=== PATIENT | female | born 1945 | race Caucasian/White ===

== ENCOUNTER 2021-05-23 09:18 | Inpatient (IN) | payer MEDICARE, OTHER ==
[~2021-05-23] VITALS: Ht 162.6 cm; Wt 59.7 kg
--- NOTE | 2021-05-23 09:57 | PHYS DOC ---
Past Medical History Past Medical History: Anemia, Dementia, Diabetes-Type II, GERD, High Chol esterol, Hypertension, Renal Disease, TIA, UTI Additional Past Medical Histor: PE, Additional Past Surgical Histo: Humerus repair, Alcohol Use: None Drug Use: None General Adult EDM: Chief Complaint: FATIGUE HPI: HPI: Patient is a 75 year old female who presents via EMS from retirement with reported complaint of altered mental status and UTI. Per EMS, patient has known UTI. The facility was waiting on a culture result to initiate antibiotic therapy. Patient was more confused today with elevated white count and hypocalcemia, so presents to emergency department under advisement of PCP. EMS reports that the retirement had her on 3 L of oxygen, however they were unable to get an oxygen read en route. Review of Systems: Review of Systems: Unable to obtain secondary to patient's mental status. Heart Score: C/O Chest Pain: N/A Physical Exam: PE: Constitutional: Patient is thin, resting comfortably, no acute distress. HENT: Normocephalic, atraumatic, bilateral external ears normal, oropharynx moist, no oral exudates, nose normal. Eyes: PERRLA, EOMI, conjunctiva normal, no discharge. Neck: Normal range of motion, no step-offs, no tenderness, supple. Cardiovascular: Elevated heart rate with regular rhythm, no murmur. Lungs & Thorax: Bilateral breath sounds clear to auscultation. Abdomen: Bowel sounds normal, soft, no tenderness, no masses, no pulsatile m asses. Skin: Patient is scratching at her right shoulder, where multiple healing excoriations are present. Warm, dry, no erythema, no rash. Back: No tenderness, no CVA tenderness. Extremities: No tenderness, no cyanosis, no clubbing, ROM intact, bilateral lower extremity edema present. Neurologic: Alert and oriented to person and situation only, no focal deficits noted. Current Patient Data: Labs: Laboratory Tests Test 05/23/21 10:03 05/23/21 11:39 White Blood Count 14.7 x10^3/uL (4.0-11.0) Red Blood Count 3.01 x10^6/uL (3.50-5.40) Hemoglobin 10.2 g/dL (12.0-15.5) Hematocrit 30.3 % (36.0-47.0) Mean Corpuscular Volume 101 fL (79-100) Mean Corpuscular Hemoglobin 34 pg (25-35) Mean Corpuscular Hemoglobin Concent 34 g/dL (31-37) Red Cell Distribution Width 15.6 % (11.5-14.5) Platelet Count 305 x10^3/uL (140-400) Neutrophils (%) (Auto) 94 % (31-73) Lymphocytes (%) (Auto) 2 % (24-48) Monocytes (%) (Auto) 4 % (0-9) Eosinophils (%) (Auto) 0 % (0-3) Basophils (%) (Auto) 0 % (0-3) Neutrophils # (Auto) 13.8 x10^3/uL (1.8-7.7) Lymphocytes # (Auto) 0.2 x10^3/uL (1.0-4.8) Monocytes # (Auto) 0.6 x10^3/uL (0.0-1.1) Eosinophils # (Auto) 0.1 x10^3/uL (0.0-0.7) Basophils # (Auto) 0.0 x10^3/uL (0.0-0.2) Segmented Neutrophils % 93 % (35-66) Band Neutrophils % 1 % (0-9) Monocytes % 6 % (0-10) Platelet Estimate Adequate (ADEQUATE) Sodium Level 136 mmol/L (136-145) Potassium Level 3.9 mmol/L (3.5-5.1) Chloride Level 102 mmol/L (98-107) Carbon Dioxide Level 27 mmol/L (21-32) Anion Gap 7 (6-14) Blood Urea Nitrogen 20 mg/dL (7-20) Creatinine 1.0 mg/dL (0.6-1.0) Estimated GFR (Cockcroft-Gault) 54.3 BUN/Creatinine Ratio 20 (6-20) Glucose Level 110 mg/dL (70-99) Lactic Acid Level 1.0 mmol/L (0.4-2.0) Calcium Level 7.8 mg/dL (8.5-10.1) Magnesium Level 1.3 mg/dL (1.8-2.4) Total Bilirubin 1.4 mg/dL (0.2-1.0) Aspartate Amino Transf (AST/SGOT) 46 U/L (15-37) Alanine Aminotransferase (ALT/SGPT) 19 U/L (14-59) Alkaline Phosphatase 159 U/L (46-116) Troponin I High Sensitivity 50 ng/L (4-50) Total Protein 5.4 g/dL (6.4-8.2) Albumin 1.6 g/dL (3.4-5.0) Albumin/Globulin Ratio 0.4 (1.0-1.7) Lipase 17 U/L (73-393) Prothrombin Time 27.6 SEC (11.7-14.0) Prothromb Time International Ratio 2.6 (0.8-1.1) Activated Partial Thromboplast Time 47 SEC (24-38) Vital Signs: Vital Signs Date Time Temp Pulse Resp B/P (MAP) Pulse Ox O2 Delivery O2 Flow Rate FiO2 05/23/21 09:20 100.5 111 12 131/59 (83) 99 Room Air 100.5 EKG: EKG: EKG Interpreted by Dr. Guevara at 0941: Tachycardic sinus dysrhythmia with no ectopic beats. Low voltage EKG. No concerning ST-T wave changes. Radiology/Procedures: Radiology/Procedures: PROCEDURE: PORTABLE CHEST 1V Single view chest dated 05/23/2021 10:17 AM: COMPARISON: None Clinical Indication: Altered mental status. Findings: Single upright portable exam of the chest was performed. Heart and mediastinal contours are within normal limits. There is some increased density at the right base projected over the fifth anterior right rib of uncertain etiology. Lungs are otherwise clear. No pleural effusion. No pneumothorax. Evidence of prior total shoulder arthroplasty in the right. IMPRESSION: 1. There is some increased density projected over the anterior fifth right rib which is of uncertain etiology. Although this could be related to the rib itself, underlying pulmonary mass or focal infiltrate cannot be excluded. PA and lateral exam could better evaluate. Alternatively, chest CT could better evaluate. Electronically signed by: Fabián Norman MD (05/23/2021 10:19 AM) [id number] PROCEDURE: CT ANGIOGRAPHY CHEST CTA chest with contrast dated 05/23/2021. COMPARISON: Chest x-ray dated same day. TECHNIQUE: Contiguous axial imaging the chest performed following the intravenous administration of 75 cc Isovue-370. Study was performed as dedicated PE protocol with thin cut coronal MIPS 3-D reconstruction. One or more of the following individualized dose reduction techniques were utilized for this examination: 1. Automated exposure control 2. Adjustment of the mA and/or kV according to patient size 3. Use of iterative reconstruction technique. FINDINGS: Contrast bolus is adequate. There is a small linear filling defect within the distal right main pulmonary artery extending into the lateral segmental branch of the right middle lobe pulmonary artery. There is a small wedge-shaped defect at the peripheral aspect of the right middle lobe along the major fissure that appears to contain some gas density. There is some subtle linear filling defect within the main left lower lobe are pulmonary artery extending partially into the segmental branches. No additional filling defects are apparent Heart size is mildly enlarged. There is a small pericardial effusion. Coronary artery calcifications. There are borderline enlarged subcarinal and right paratracheal lymph nodes. No axillary or hilar adenopathy. Thyroid gland unremarkable. There are small bilateral pleural effusions. Mild to moderate emphysema. Mild diffuse bronchial wall thickening. Central airways are patent. No additional infiltrates. Images of the upper abdomen show diffuse low-density liver suggesting fatty infiltration. Gallbladder surgically absent. No acute bony abnormality. Multilevel spondylosis. Mild wedge compression deformity of T12, likely remote. IMPRESSION: 1. Small pulmonary embolus within the distal main right pulmonary artery extending into the right middle lobe lateral segmental branch. There is a wedge- shaped area of consolidation in the lateral aspect of the right middle lobe that is nonspecific but most likely related to a small pulmonary infarct. Early pneumonia not excluded. Follow-up imaging may be warranted to ensure resolution. 2. Additional small partially occlusive filling defect within the main left lower lobe pulmonary artery. 3. Small bilateral pleural effusions with small pericardial effusion. 4. Emphysema. 5. Coronary artery calcifications. 6. Borderline enlarged mediastinal lymph nodes, nonspecific. 7. Hepatic steatosis. Results discussed with ER physician at approximately 11:30 AM on the day of study. Electronically signed by: Fabián Norman MD (05/23/2021 11:38 AM) [id number] Course & Med Decision Making: Course & Med Decision Making Pertinent Labs and Imaging studies reviewed. (See chart for details) Patient is altered with known UTI, and now has elevated heart rate and reported leukocytosis. Patient meets sepsis criteria. Right sided infiltrate seen on CXR. CTA chest ordered for further evaluation. Bilateral PE noted on CTA chest. Patient treated with 1 mg/kg low molecular weight heparin subq. Patient admitted to Dr. Hernandez's care for septic UTI and bilateral PE/pleural effusions. Madhuon Disclaimer: Aidee Disclaimer: This electronic medical record was generated, in whole or in part, using a voice recognition dictation system. Departure Departure Impression: Primary Impression: Sepsis secondary to UTI Additional Impressions: Bilateral pulmonary embolism Bilateral pleural effusion Disposition: ADMITTED INPATIENT Admitting Physician: Madi. Nguyen Condition: GUARDED Referrals: CHAKA DAWSON (PCP) Scripts Tramadol Hcl (TRAMADOL HCL) 50 Mg Tablet 50 MG PO Q6HRS PRN for PAIN for 30 Days, #120 TAB Prov: AYAKA HERNANDEZ MD 05/26/21 Fluconazole (FLUCONAZOLE) 100 Mg Tablet 1 TAB PO DAILY for yeast UTI for 10 Days, #10 TAB Prov: AYAKA HERNANDEZ MD 05/26/21 Cefdinir (CEFDINIR) 300 Mg Capsule 1 CAP PO BID for uti for 7 Days, #14 CAP Prov: AYAKA HERNANDEZ MD 05/26/21 GALINA WILLIAM May 23, 2021 09:57
[2021-05-23 10:12] LABS: BASO % 0 % (0-3); EOS # 0.1 x10^3/uL (0.0-0.7); EOS % 0 % (0-3); HEMATOCRIT 30.3 % (36.0-47.0); HEMOGLOBIN 10.2 g/dL (12.0-15.5); LYMPH # 0.2 x10^3/uL (1.0-4.8); LYMPH % 2 % (24-48); MEAN CORPUSCULAR HEMOGLOBIN 34 pg (25-35); MEAN CORPUSCULAR HGB CONC 34 g/dL (31-37); MEAN CORPUSCULAR VOLUME 101 fL (79-100); MONO # 0.6 x10^3/uL (0.0-1.1); MONO % 4 % (0-9); NEUT # 13.8 x10^3/uL (1.8-7.7); NEUT % 94 % (31-73); PLATELET COUNT 305 x10^3/uL (140-400); RED BLOOD COUNT 3.01 x10^6/uL (3.50-5.40); RED CELL DISTRIBUTION WIDTH 15.6 % (11.5-14.5); WHITE BLOOD COUNT 14.7 x10^3/uL (4.0-11.0)
--- NOTE | 2021-05-23 10:22 | RAD ---
Single view chest dated 05/23/2021 10:17 AM: COMPARISON: None Clinical Indication: Altered mental status. Findings: Single upright portable exam of the chest was performed. Heart and mediastinal contours are within no rmal limits. There is some increased density at the right base projected over the fifth anterior righ t rib of uncertain etiology. Lungs are otherwise clear. No pleural effusion. No pneumothorax. Evidenc e of prior total shoulder arthroplasty in the right. IMPRESSION: 1. There is some increased density projected over the anterior fifth right rib which is of uncertain etiology. Although this could be related to the rib itself, underlying pulmonary mass or focal infilt rate cannot be excluded. PA and lateral exam could better evaluate. Alternatively, chest CT could bet ter evaluate. Electronically signed by: Fabián Norman MD (05/23/2021 10:19 AM) [id number]
[2021-05-23 10:27] LABS: CALCIUM 7.8 mg/dL (8.5-10.1); GFR 54.3; POTASSIUM 3.9 mmol/L (3.5-5.1)
[2021-05-23] MEDS ORDERED: IV NORMAL SALINE 1000ML BAG 1,000 ML IV ONE (10:30)
[2021-05-23] MEDS ORDERED: ACETAMINOPHEN 325 MG TABLET. PO ONE (10:30)
[2021-05-23] MEDS ORDERED: cefTRIAXone IV Push 1 GM VIAL. IVP ONE (10:30)
[2021-05-23 10:33] LABS: ALBUMIN 1.6 g/dL (3.4-5.0); ALBUMIN/GLOBULIN RATIO 0.4 (1.0-1.7); MAGNESIUM 1.3 mg/dL (1.8-2.4); TOTAL BILIRUBIN 1.4 mg/dL (0.2-1.0); TOTAL PROTEIN 5.4 g/dL (6.4-8.2)
[2021-05-23] MEDS ORDERED: IOHEXOL 350 MG/ML 100 ML VIAL. IV ONE (11:00)
[2021-05-23] MEDS ORDERED: CONTRAST GIVEN. MC PRN (11:00)
--- NOTE | 2021-05-23 11:40 | RAD ---
CTA chest with contrast dated 05/23/2021. COMPARISON: Chest x-ray dated same day. TECHNIQUE: Contiguous axial imaging the chest performed following the intravenous administration of 75 cc Isovue -370. Study was performed as dedicated PE protocol with thin cut coronal MIPS 3-D reconstruction. One or more of the following individualized dose reduction techniques were utilized for this examinat ion: 1. Automated exposure control 2. Adjustment of the mA and/or kV according to patient size 3. Use of iterative reconstruction technique. FINDINGS: Contrast bolus is adequate. There is a small linear filling defect within the distal right main pulmo nary artery extending into the lateral segmental branch of the right middle lobe pulmonary artery. Th ere is a small wedge-shaped defect at the peripheral aspect of the right middle lobe along the major fissure that appears to contain some gas density. There is some subtle linear filling defect within t he main left lower lobe are pulmonary artery extending partially into the segmental branches. No anna tional filling defects are apparent Heart size is mildly enlarged. There is a small pericardial effusion. Coronary artery calcifications. There are borderline enlarged subcarinal and right paratracheal lymph nodes. No axillary or hilar ad enopathy. Thyroid gland unremarkable. There are small bilateral pleural effusions. Mild to moderate emphysema. Mild diffuse bronchial wall thickening. Central airways are patent. No additional infiltrates. Images of the upper abdomen show diffuse low-density liver suggesting fatty infiltration. Gallbladder surgically absent. No acute bony abnormality. Multilevel spondylosis. Mild wedge compression deformi ty of T12, likely remote. IMPRESSION: 1. Small pulmonary embolus within the distal main right pulmonary artery extending into the right mid dle lobe lateral segmental branch. There is a wedge-shaped area of consolidation in the lateral aspec t of the right middle lobe that is nonspecific but most likely related to a small pulmonary infarct. Early pneumonia not excluded. Follow-up imaging may be warranted to ensure resolution. 2. Additional small partially occlusive filling defect within the main left lower lobe pulmonary l[place] ry. 3. Small bilateral pleural effusions with small pericardial effusion. 4. Emphysema. 5. Coronary artery calcifications. 6. Borderline enlarged mediastinal lymph nodes, nonspecific. 7. Hepatic steatosis. Results discussed with ER physician at approximately 11:30 AM on the day of study. Electronically signed by: Fabián Norman MD (05/23/2021 11:38 AM) [id number]
[2021-05-23] MEDS ORDERED: MAGNESIUM SULFATE 2GM 50 ML IV ONE (12:00)
[2021-05-23 12:09] LABS: PROTHROMBIN TIME PATIENT 27.6 SEC (11.7-14.0)
[2021-05-23] MEDS ORDERED: ACETAMINOPHEN 325 MG TABLET. PO PRN (12:15)
[2021-05-23 13:40] LABS: % BANDS 1 % (0-9); % MONOS 6 % (0-10); % SEGS 93 % (35-66)
[2021-05-23 13:41] LABS: PLT ESTIMATE ADEQUATE (ADEQUATE)
[2021-05-23 14:26] LABS: BILIRUBIN,URINE MODERATE (NEG); CLARITY,URINE TURBID; COLOR,URINE RED; NITRITE,URINE POSITIVE (NEG); PH,URINE 5.5 (<5.0-8.0); PROTEIN,URINE 100 mg/dL (NEG-TRACE)
[2021-05-23 14:37] LABS: BACTERIA,URINE MANY /HPF (0-FEW); WBC,URINE TNTC /HPF (0-4); YEAST,URINE PRESENT /HPF
--- NOTE | 2021-05-23 14:59 | EKG ---
[facility] [address] [place] [address] Test Date: 2021-05-23 Test Time: 09:35:22 Pat Name: NOEMY BELTRÁN Department: Room: ED HOLD 18 Gender: F [employer] Developer: : 1945 Requested By: GALINA WILLIAM Order Number: [id number] Reading MD: Mynor Garay Measurements Intervals Randolph Rate: 109 P: 44 OR: 130 QRS: 59 QRSD: 70 T: 169 QT: 294 QTc: 397 Interpretive Statements SINUS TACHYCARDIA ATRIAL PREMATURE COMPLEX(ES) LOW LIMB LEAD VOLTAGE T ABNORMALITY IN INFERIOR LEADS ABNORMAL ECG RI6.02 No previous ECG available for comparison Electronically Signed On 05-23-2021 20:54:37 CDT by Mynor Garay
[2021-05-23 18:49] VITALS: BP 156/95
[2021-05-23] MEDS ORDERED: APIX5TAB PO (19:51)
[2021-05-23] MEDS ORDERED: POTA10TA12 PO (19:51)
[2021-05-23] MEDS ORDERED: ONDA4TAB12 PO (19:51)
[2021-05-23] MEDS ORDERED: PANT40TA77 PO (19:51)
[2021-05-23] MEDS ORDERED: AMLO-186 PO (19:51)
[2021-05-23] MEDS ORDERED: TRAM50TA PO (19:51)
[2021-05-23] MEDS ORDERED: METO-239 PO (19:51)
[2021-05-23] MEDS ORDERED: CALC-71 PO (19:51)
[2021-05-23] MEDS ORDERED: ATOR20TA58 PO (19:51)
[2021-05-23 22:42] VITALS: BP 140/66
[2021-05-24 02:45] VITALS: BP 117/61
[2021-05-24 06:29] VITALS: BP 131/61
[2021-05-24] MEDS ORDERED: ONDANSETRON ODT 4 MG TAB.RAPDIS. PO PRN (09:00)
[2021-05-24] MEDS ORDERED: traMADol 50 MG TABLET PO PRN (09:00)
[2021-05-24] MEDS: CALCIUM CARB/VIT D3 500/200 TABLET. PO SCH (09:34)
[2021-05-24] MEDS: POTASSIUM CHLORIDE 10 MEQ TABLET.ER. PO SCH (09:34)
[2021-05-24] MEDS: APIXABAN 5 MG TABLET. PO SCH ×2 (09:35→22:22)
[2021-05-24] MEDS: METOPROLOL SUCC 24HR ER 25 MG TAB.ER.24H. PO SCH (09:35)
[2021-05-24] MEDS: cefTRIAXone IV Push 1 GM VIAL. IVP SCH (09:41)
--- NOTE | 2021-05-24 09:50 | PN ---
DATE: 05/24/2021 SUBJECTIVE: The patient is resting, slightly propped up in bed, in no apparent distress. On questioning her, denied any complaint. Nursing staff did not voice any concern. The patient is extremely demented and does not really give any useful information. PHYSICAL EXAMINATION: GENERAL: I examined her, she looked pale, no jaundice, cyanosis, no lymphadenopathy, no thyromegaly, no jugular venous distention. No lower limb edema. VITAL SIGNS: Her heart rate was 113, blood pressure was 131/61, temperature was 98.6, respiratory rate was 16 and oxygen saturation was 99% on room air. HEAD, EYES, EARS, NOSE, AND THROAT: Normocephalic, atraumatic. NECK: Supple. HEART: Showed normal first and second heart sounds, no gallop, rub or murmur. CHEST: Clear to auscultation, no crepitation or rhonchi. ABDOMEN: Distended, soft, nontender. NEUROLOGIC: She was demented, but without any obvious lateralizing sign. Her intake over the last 24 hours and output were incompletely recorded. LABORATORY DATA: As of yesterday showed white cell count of 14,700, hemoglobin 10, hematocrit 30, MCV 101 and platelet count of 305,000. Her chemistry showed a serum sodium 136, potassium 3.9, chloride 102, bicarbonate 27, anion gap of 7, BUN 20, creatinine 1. ASSESSMENT: 1. Altered mental status, likely due to underlying urinary tract infection. 2. Urinary tract infection with growth of Klebsiella pneumoniae. 3. Acute hypoxic respiratory failure, currently resolved. Her oxygen this morning was 99%. She has history of DVT and PE. Other medical problems include hyperlipidemia, hypomagnesemia, hypertension. I have reconciled all her medication. I would magnesium oxide and repeat all her labs again tomorrow. ABRIL/SOHAN DR: Madyson TID: [id number]
--- NOTE | 2021-05-24 10:33 | HP ---
DATE OF SERVICE: 05/24/2021 ADMIT DATE: 05/23/2021 HISTORY OF PRESENT ILLNESS: The patient is a 75-year-old female patient, a resident at [facility] in [place] who apparently was sent to the Emergency Room of [facility] with acute hypoxic respiratory failure. She was on 3 liters of oxygen and they were unable to maintain her oxygen above 90. She apparently is known to have UTI and the facility was waiting for culture results to initiate antibiotic therapy. She was more confused and has elevated white cell count as well as hypocalcemia and therefore, she was sent to the Emergency Room for further evaluation and treatment. The patient herself was very confused and demented and does not give much useful information. She was extensively investigated and had had lab work as well as imaging studies. Her lab work showed that she has leukocytosis, normochromic normocytic anemia. Her prothrombin time, INR was elevated as well as APTT. Her chemistry showed that she has hypomagnesemia. Her total bilirubin and alkaline phosphatase slightly elevated. AST and ALT normal. Her troponin was 50. She has severe hypoalbuminemia. Serum lipase was only 17. Her urinalysis showed the urine was turbid with a pH of 5.5, specific gravity more than 1.030. There was a small amount of protein. The urine was negative for glucose, trace of ketones, large amount of blood, positive for nitrite, there is large amount of leukocyte esterase, 6-10 rbc's and too numerous to count wbc's and too many bacteria. In fact, her urine culture has grown Klebsiella pneumoniae and yeast. Her chest x-ray showed some increased density projected over the anterior fifth right rib, which is of uncertain etiology, although this could be related to the rib itself, underlying pulmonary mass or focal infiltrate cannot be excluded. The patient underwent CT angio of the chest, which showed the patient has small pulmonary embolus within the distal main right pulmonary artery extending into the right middle lobe lateral subsegmental branch. There is a wedge-shaped area of consolidation in the lateral aspect of the right middle lobe that is nonspecific, but most likely related to a small pulmonary infarct. Early pneumonia cannot be excluded. Followup imaging may be warranted to ensure resolution. She has additional small partially occlusive filling defects in the main left lower lobe pulmonary artery, small bilateral pleural effusions with small pericardial effusion. She has emphysema, coronary artery calcification, borderline enlarged mediastinal and hilar lymph nodes and hepatic steatosis. The patient was treated with IV ceftriaxone and was also started on Lovenox; however, she is already on apixaban. PAST MEDICAL HISTORY: Significant for type 2 diabetes mellitus, dementia, aphasia, acute posthemorrhagic anemia, hypomagnesemia, hypocalcemia, hypoosmolality and hyponatremia, hypokalemia, history of hematuria, syncope and collapse, abnormal electrocardiogram, history of pulmonary embolism, history of deep vein thrombosis. The patient had transient ischemic attack. She had fracture of nasal bone with subsequent encounter, history of recurrent falls. PAST SURGICAL HISTORY: Unobtainable. FAMILY HISTORY: Unobtainable. SOCIAL HISTORY: She is a resident at [facility] in [place] since 01/01/2021. She does not smoke, drink alcohol or recreational drugs. The patient is mostly bedbound. PHYSICAL EXAMINATION: GENERAL: On arrival to the Emergency Room, she was somewhat pale, not jaundiced or cyanosed. No lymphadenopathy, no thyromegaly, no jugular venous distention. No lower limb edema. VITAL SIGNS: Her heart rate on arrival was 120, blood pressure was 152/67, her temperature was 100.5, respiratory rate was 22 and oxygen saturation was 97% on room air. HEAD, EYES, EARS, NOSE, AND THROAT: Normocephalic, atraumatic. NECK: Supple. HEART: Showed normal first and second heart sounds. No gallop, rub or murmur. CHEST: Clear to auscultation. No crepitation or rhonchi. ABDOMEN: Distended, soft, nontender. NEUROLOGIC: She was awake, alert, very confused; however, all cranial nerves intact. She moves upper extremities to much good extent than lower extremities. She is mostly bedbound. LABORATORY DATA: On arrival showed a white cell count of 14,700, hemoglobin 10, hematocrit 30, MCV 101 and platelet count 305,000 with a manual differential showed 94% polymorphs, 2% lymphocytes and 4% monocytes. Her chemistry showed a serum sodium 136, potassium 3.9, chloride 102, bicarbonate 27, anion gap of 7, BUN 20, creatinine 1, estimated GFR was 64 mL per minute, her glucose was 110, calcium was 7.8, magnesium was 1.3. Total bilirubin and alkaline phosphatase slightly elevated. AST and ALT were normal. Her total protein was 5.4, albumin was 1.6, serum lipase was only 17. ASSESSMENT: 1. Acute on chronic hypoxic respiratory failure. Surprisingly, the patient's oxygen was 97% on room air. 2. History of deep venous thrombosis and pulmonary embolism. 3. Urinary tract infection with a growth of Klebsiella pneumoniae and yeast. 4. Chronic normochromic, normocytic anemia. 5. Hyperlipidemia. 6. Hypomagnesemia. PLAN: Replenish her magnesium. Continue with IV ceftriaxone and decide the further management accordingly. JAMEY DR: Madyson TID: [id number]
[2021-05-24 11:27] VITALS: BP 131/60
[2021-05-24 14:49] VITALS: BP 104/56
--- NOTE | 2021-05-24 15:40 | NUR ---
SS following for discharge planning. SS reviewed pt chart and discussed with pt RN. Pt is LTC resident from [facility], ; fax [phone]. COVID19 negative. Pt is currently on room air. SS will continue to follow for discharge planning.
[2021-05-24 19:30] VITALS: BP 116/56
[2021-05-24] MEDS: LACTOBACILLUS RHAMNOSUS GG 1 CAPSULE. PO SCH (21:00)
[2021-05-24] MEDS: ATORVASTATIN CALCIUM 20 MG TABLET PO SCH (22:24)
[2021-05-24 22:59] VITALS: BP 126/60
[2021-05-25 03:22] VITALS: BP 128/60
[2021-05-25 04:52] LABS: HEMATOCRIT 30.1 % (36.0-47.0); HEMOGLOBIN 10.3 g/dL (12.0-15.5); RED BLOOD COUNT 2.92 x10^6/uL (3.50-5.40); WHITE BLOOD COUNT 12.3 x10^3/uL (4.0-11.0)
[2021-05-25 05:12] LABS: ALBUMIN 1.4 g/dL (3.4-5.0); ALBUMIN/GLOBULIN RATIO 0.4 (1.0-1.7); CALCIUM 7.9 mg/dL (8.5-10.1); GFR 54.3; POTASSIUM 3.7 mmol/L (3.5-5.1); TOTAL BILIRUBIN 0.9 mg/dL (0.2-1.0); TOTAL PROTEIN 4.9 g/dL (6.4-8.2)
[2021-05-25 07:00] VITALS: BP 130/58
[2021-05-25] MEDS: PANTOPRAZOLE 40 MG TABLET.DR. PO SCH (08:29)
[2021-05-25] MEDS: POTASSIUM CHLORIDE 10 MEQ TABLET.ER. PO SCH (08:30)
[2021-05-25] MEDS: APIXABAN 5 MG TABLET. PO SCH ×2 (08:30→21:13)
[2021-05-25] MEDS: LACTOBACILLUS RHAMNOSUS GG 1 CAPSULE. PO SCH ×2 (08:30→21:13)
[2021-05-25] MEDS: CALCIUM CARB/VIT D3 500/200 TABLET. PO SCH (08:30)
[2021-05-25] MEDS: METOPROLOL SUCC 24HR ER 25 MG TAB.ER.24H. PO SCH (08:31)
[2021-05-25] MEDS: cefTRIAXone IV Push 1 GM VIAL. IVP SCH (08:35)
--- NOTE | 2021-05-25 09:36 | PN ---
DATE: 05/25/2021 SUBJECTIVE: The patient is resting, slightly propped up in bed, eating breakfast, in no apparent distress. On questioning her, she denied any complaint. Nursing staff stated that she had uneventful night. PHYSICAL EXAMINATION: GENERAL: When I examined her, she was pale, not jaundiced, cyanosed. No lymphadenopathy, no thyromegaly, no jugular venous distention. No lower limb edema. VITAL SIGNS: Her heart rate was 92, blood pressure is 128/60, temperature 97.5, respiratory rate was 18 and oxygen saturation was 93%. HEAD, EYES, EARS, NOSE, AND THROAT: Normocephalic, atraumatic. NECK: Supple. HEART: Normal first and second heart sounds, no gallop or murmur. CHEST: Clear to auscultation, no crepitation or rhonchi. ABDOMEN: Distended, soft, nontender. NEUROLOGIC: She is awake, alert, responding appropriately. All her cranial nerves intact. Her intake and output are incompletely recorded. LABORATORY DATA: This morning showed a white cell count 12,300, hemoglobin 10, hematocrit 30, MCV 103 and platelet count 298,000. Her chemistry showed a serum sodium 141, potassium 3.7, chloride 107, bicarbonate 28, anion gap of 6, BUN 24, creatinine 1, estimated GFR was 54 mL per minute. Her glucose was 98, calcium was 7.9, magnesium 2. Total bilirubin, AST, ALT, alkaline phosphatase were slightly elevated. Total protein was 4.9, albumin was 1.4. ASSESSMENT: 1. Altered mental status, likely due to underlying urinary tract infection. 2. Urinary tract infection with growth of Klebsiella pneumoniae. The sensitivity is still pending at the time of this dictation. 3. Acute hypoxic respiratory failure, resolved. 4. DVT and PE for which she is on apixaban. 5. Hyperlipidemia. 6. Hypomagnesemia, resolved. Her serum magnesium has risen from 1.3 to 2. 7. Hypertension, seemed to be well controlled. PLAN: To continue with IV antibiotic. Continue with all her other medication. I will start her also on magnesium oxide once we have the urine culture and sensitivity. She can be switched to oral antibiotic and can be discharged back to [facility] in [place]. ABRIL/SOHAN DR: Madyson TID: [id number]
[2021-05-25] MEDS: MAGNESIUM OXIDE 400 MG TABLET PO SCH ×3 (09:45→21:13)
[2021-05-25 10:26] VITALS: BP 111/53
--- NOTE | 2021-05-25 12:29 | NUR ---
SS following up with discharge planning. SS reviewed pt chart and discussed with pt RN. Pt is currently on room air. COVID19 negative. Pt on IV Rocephin. Currently awaiting urine cultures and sensitivities. Pt is LTC resident from [facility], ; fax [phone]. COVID19 negative. Clinical updates phoned and faxed to [facility]. SS will continue to follow for discharge planning.
[2021-05-25 14:38] VITALS: BP 119/57
--- NOTE | 2021-05-25 15:13 | NUR ---
Wound/Ostomy Care Wound Type/Assessment: Wound consult for right heel wound. Upon assessment Patient has DTIs to bilateral heels and coccyx. Wounds pictured, measured, assessed and dressed. Treatment Recommendations/Plan: Apply skin prep and foam, change every 3 days Education provided: WC POC and PU prevention, will need reinforcement of teaching Offloading surface/device: P500 bed ordered, bilateral heel medix boots ordered, TQ2H with wedge Recommended Referrals/Tests: na Discharge Recommendations for dressings: see above Addendum: 05/25/21 at 1520 by THOMAS REYES RN Patient also has malordorus rash under breasts and scabs to right shoulder and arm that appear to be from scratching. Nystatin powder ordered
[2021-05-25 19:00] VITALS: BP 121/58
[2021-05-25] MEDS: ATORVASTATIN CALCIUM 20 MG TABLET PO SCH (21:13)
[2021-05-25] MEDS: NYSTATIN TOPICAL POWDER 15GM BOTTLE. TP SCH (21:34)
[2021-05-25 22:33] VITALS: BP 130/60
[2021-05-26 02:22] VITALS: BP 114/54
[2021-05-26] MEDS: PANTOPRAZOLE 40 MG TABLET.DR. PO SCH (06:12)
[2021-05-26 07:00] VITALS: BP 113/56
[2021-05-26] MEDS: MAGNESIUM OXIDE 400 MG TABLET PO SCH ×2 (08:28→13:44)
[2021-05-26] MEDS: POTASSIUM CHLORIDE 10 MEQ TABLET.ER. PO SCH (08:28)
[2021-05-26] MEDS: APIXABAN 5 MG TABLET. PO SCH (08:28)
[2021-05-26] MEDS: METOPROLOL SUCC 24HR ER 25 MG TAB.ER.24H. PO SCH (08:28)
[2021-05-26] MEDS: CALCIUM CARB/VIT D3 500/200 TABLET. PO SCH (08:28)
[2021-05-26] MEDS: LACTOBACILLUS RHAMNOSUS GG 1 CAPSULE. PO SCH (08:28)
[2021-05-26] MEDS: cefTRIAXone IV Push 1 GM VIAL. IVP SCH (08:29)
[2021-05-26] MEDS: NYSTATIN TOPICAL POWDER 15GM BOTTLE. TP SCH (08:30)
[2021-05-26] MEDS ORDERED: FLUC100T4 PO (09:59)
[2021-05-26] MEDS ORDERED: CEFD300C PO (09:59)
--- NOTE | 2021-05-26 10:00 | SNU/HH DC ---
DISCHARGE ORDERS DISCHARGE INFORMATION: DISCHARGE DATE: May 26, 2021 FINAL DIAGNOSIS Problems Medical Problems: (1) Bilateral pleural effusion Status: Acute (2) Bilateral pulmonary embolism Status: Acute (3) Sepsis secondary to UTI Status: Acute CONDITION ON DISCHARGE: Stable CODE STATUS: Code Status: Full POST DISCHARGE ORDERS: ACTIVITY ORDERS: Resume previous activity DIET AFTER DISCHARGE: Cardiac DISCHARGE MEDICATIONS: Home Meds Active Scripts Fluconazole (FLUCONAZOLE) 100 Mg Tablet, 1 TAB PO DAILY for yeast UTI for 10 Days, #10 TAB Prov:AYAKA POON MD 05/26/21 Cefdinir (CEFDINIR) 300 Mg Capsule, 1 CAP PO BID for uti for 7 Days, #14 CAP Prov:AYAKA POON MD 05/26/21 Reported Medications Calcium Carbonate/Vitamin D3 (CALCIUM 600 + VIT D CAPLET) 1 Each Tablet, 1 EACH PO DAILY for supplement, TAB 05/23/21 Ondansetron (ONDANSETRON ODT) 4 Mg Tab.rapdis, 4 MG PO PRN Q4HRS PRN for NAUSEA, TAB 05/23/21 Tramadol Hcl (TRAMADOL HCL) 50 Mg Tablet, 50 MG PO Q6HRS PRN for PAIN, TAB 05/23/21 Pantoprazole Sodium (PANTOPRAZOLE SODIUM ) 40 Mg Tablet.dr, 40 MG PO DAILYAC for GERD, TAB 05/23/21 Potassium Chloride (KLOR-CON 10) 10 Meq Tablet.er, 10 MEQ PO DAILY for "d yspnea", TAB 05/23/21 Metoprolol Succinate (METOPROLOL SUCCINATE ( XL )) 25 Mg Tab.er.24h, 25 MG PO DAILY for FOR HYPERTENSION, #30 TAB 0 Refills 05/23/21 Atorvastatin Calcium (ATORVASTATIN CALCIUM) 20 Mg Tablet, 20 MG PO HS for FOR CHOLESTEROL, #30 TAB 0 Refills 05/23/21 Apixaban (ELIQUIS) 5 Mg Tablet, 5 MG PO BID for blood thinner, TAB 05/23/21 Amlodipine Besylate (AMLODIPINE BESYLATE) 5 Mg Tablet, 5 MG PO DAILY for HTN, TAB 05/23/21 AYAKA POON MD May 26, 2021 10:00
[2021-05-26] MEDS ORDERED: TRAM50TA PO (10:06)
[2021-05-26 11:00] VITALS: BP 115/55
[2021-05-26 15:00] VITALS: BP 95/51
--- NOTE | 2021-05-26 17:00 | NUR ---
Discharge Note: NOEMY BELTRÁN6 [facility] Discharge instructions and discharge home medications reviewed with Other facility and a copy given. All questions have been answered and understanding verbalized. Patient discharged to [facility] with transport via stretcher. Report called to accepting nurse at other facility.
== END 2021-05-26 17:00 | DRG 871 ==
LOC: ER 09:18 → ED HOLD 11:57 → 6 SOUTH 18:28
PROVIDERS: ADMIT Internal Medicine; ATTEND Internal Medicine
DX: A41.9 Sepsis, unspecified organism (principal); J96.21 Acute and chronic respiratory failure with hypoxia; I26.99 Other pulmonary embolism without acute cor pulmonale; G93.41 Metabolic encephalopathy; N39.0 Urinary tract infection, site not specified; I31.3 Pericardial effusion (noninflammatory); J90 Pleural effusion, not elsewhere classified; R47.01 Aphasia; D64.9 Anemia, unspecified; E11.9 Type 2 diabetes mellitus without complications; E78.00 Pure hypercholesterolemia, unspecified; E78.5 Hyperlipidemia, unspecified; E83.42 Hypomagnesemia; E83.51 Hypocalcemia; E88.09 Other disorders of plasma-protein metabolism, not elsewhere classified; F03.90 Unspecified dementia, unspecified severity, without behavioral disturbance, psychotic disturbance, mood disturbance, and anxiety; I10 Essential (primary) hypertension; I25.10 Atherosclerotic heart disease of native coronary artery without angina pectoris; J43.9 Emphysema, unspecified; K76.0 Fatty (change of) liver, not elsewhere classified; R79.1 Abnormal coagulation profile; Z86.711 Personal history of pulmonary embolism; Z86.718 Personal history of other venous thrombosis and embolism; Z86.73 Personal history of transient ischemic attack (TIA), and cerebral infarction without residual deficits; K21.9 Gastro-esophageal reflux disease without esophagitis; B96.1 Klebsiella pneumoniae [K. pneumoniae] as the cause of diseases classified elsewhere
CPT/HCPCS: 36415; 71045; 71275; 80053; 81001; 83605; 83690; 83735; 84484; 85007; 85025; 85027; 85610; 85730; 87040; 87086; 87106; 87426; 93005; 96360; J0696; J1650; J3475; J7030; Q9967; U0003; U0005; 99285-25; G0378

== ENCOUNTER 2021-06-12 11:40 | Emergency (ER) | payer MEDICARE, OTHER ==
[~2021-06-12] VITALS: Ht 167.6 cm; Wt 77.0 kg
[~2021-06-12 11:40] MED LIST: AMLO-186 PO; APIX5TAB PO; ATOR20TA58 PO; CALC-71 PO; CEFD300C PO; FLUC100T4 PO; METO-239 PO; ONDA4TAB12 PO; PANT40TA77 PO; POTA10TA12 PO; TRAM50TA PO
[2021-06-12] MEDS ORDERED: ACETAMINOPHEN 650 MG SUPP.RECT. PR ONE (12:00)
[2021-06-12] MEDS ORDERED: CEFEPIME HCL IV Push 2 GM VIAL. IVP ONE (12:00)
[2021-06-12] MEDS ORDERED: VANCOMYCIN PER PHARMACY MC PRN (12:00)
[2021-06-12] MEDS ORDERED: IV NORMAL SALINE 1000ML BAG 1,000 ML IV ONE ×2 (12:00→16:30)
[2021-06-12 12:13] LABS: BASE EXCESS ABG 5 mmol/L (-3-3); HCO3 ABG 29 mmol/L (21-28); PCO2 ABG 40 mmHg (35-46); PO2 ABG 86 mmHg (65-108); SAT O2 ABG 96 % (92-99)
[2021-06-12 12:16] LABS: FIO2 ABG 1.5 lpm nc
[2021-06-12 12:28] LABS: CALCIUM 7.6 mg/dL (8.5-10.1); CREATININE 0.9 mg/dL (0.6-1.0); GFR 61.4; POTASSIUM 4.8 mmol/L (3.5-5.1)
[2021-06-12 12:34] LABS: ALBUMIN 1.6 g/dL (3.4-5.0); ALBUMIN/GLOBULIN RATIO 0.5 (1.0-1.7); TOTAL BILIRUBIN 0.6 mg/dL (0.2-1.0); TOTAL PROTEIN 5.1 g/dL (6.4-8.2)
--- NOTE | 2021-06-12 12:41 | RAD ---
AP chest. HISTORY: Sepsis, hypoxia AP view was taken of the chest. There is a shoulder prosthesis on the right. There is blunting of the left costophrenic angle possibly a small effusion. There is mild atelectasis in the right lung base. There is mild atelectasis or infiltrate in the left lung base. Heart is normal in size. IMPRESSION: 1. Blunting left costophrenic angle possible pleural effusion. 2. Mild left base atelectasis or infiltrate. Electronically signed by: Parker Gary MD (06/12/2021 12:39 PM) [facility]
[2021-06-12] MEDS ORDERED: VANCOMYCIN 2 GM in IV NORMAL SALINE 500ML BAG 500 ML IV ONE (13:00)
--- NOTE | 2021-06-12 13:04 | PHYS DOC ---
Past Medical History Past Medical History: Anemia, Dementia, Diabetes-Type II, GERD, High Cholesterol, Hypertension, Renal Disease, TIA, UTI Additional Past Medical Histor: PE, MULTIPLE BEDSORES Past Surgical History: No Surgical History Additional Past Surgical Histo: Humerus repair, Smoking Status: Unknown if ever smoked Alcohol Use: None Drug Use: None General Adult EDM: Chief Complaint: SHORTNESS OF BREATH HPI: HPI: Patient is a 75 year old female with history of dementia, CVA, diabetes, HTN, HLD, CKD who presents with fever and shortness of breath. Fever was noted this morning and patient was noted to be hypoxic in the 60s initially. Fever up to 103 F. Came up into the 90s with supplemental oxygen. She was also noted to be more confused than usual, but staff was not able to say for how long she had had the confusion. She has chronic pressure ulcers on her bilateral heels and a large sacral decubitus ulcer. Patient denies any pain, but is an unreliable historian secondary to confusion Review of Systems: Review of Systems: No reliable ROS secondary to confusion/dementia Heart Score: C/O Chest Pain: N/A Current Medications: Current Medications Medications (Trade) Dose Ordered Sig/Kirt Start Time Stop Time Status Last Admin Dose Admin Acetaminophen (Tylenol Supp) 650 mg 1X ONCE 06/12/21 12:00 06/12/21 12:02 DC 06/12/21 12:32 650 MG Cefepime HCl (Maxipime) 2 gm 1X ONCE 06/12/21 12:00 06/12/21 12:08 DC 06/12/21 12:32 2 GM Sodium Chloride 1,000 ml @ 1,000 mls/hr 1X ONCE 06/12/21 12:00 06/12/21 12:59 DC 06/12/21 12:00 1,000 MLS/HR Vancomycin HCl (Vanco Per Pharmacy) 1 each PRN DAILY PRN 06/12/21 12:00 UNV Vancomycin HCl 2 gm/Sodium Chloride 500 ml @ 250 mls/hr 1X ONCE 06/12/21 13:00 06/12/21 14:59 Allergies: Allergies: Allergies Coded Allergies Type Severity Reaction Last Updated Verified Penicillins Allergy Unknown 05/23/21 Yes Sulfa (Sulfonamide Antibiotics) Allergy Unknown 05/23/21 Yes codeine Allergy Unknown 05/23/21 Yes Physical Exam: PE: Constitutional: Chronically ill-appearing HENT: Normocephalic, atraumatic, Eyes: PERRLA, EOMI, conjunctiva normal, no discharge. [] Neck: Normal range of motion, no tenderness, supple, no stridor. [] Cardiovascular:Heart rate regular rhythm, no murmur [] Lungs & Thorax: Bilateral breath sounds clear to auscultation [] Abdomen: soft, no tenderness, no masses, no pulsatile masses. [] Skin: Hot to the touch. dry, no erythema, no rash. [] Back: Large sacral ulcer with packing, purulent material, unclear depth. Extremities: Old bruising on left shoulder. No deformity or joint effusions evident. Bilateral heels with pressure ulcers, right with eschar, unstageable. Left nonblanching redness. Neurologic: Alert and oriented X 3, normal motor function, normal sensory function, no focal deficits noted. [] Psychologic: Affect normal, judgement normal, mood normal. [] Current Patient Data: Labs: Laboratory Tests Test 06/12/21 11:55 06/12/21 12:05 Sodium Level 136 mmol/L (136-145) Potassium Level 4.8 mmol/L (3.5-5.1) Chloride Level 99 mmol/L (98-107) Carbon Dioxide Level 30 mmol/L (21-32) Anion Gap 7 (6-14) Blood Urea Nitrogen 15 mg/dL (7-20) Creatinine 0.9 mg/dL (0.6-1.0) Estimated GFR (Cockcroft-Gault) 61.4 BUN/Creatinine Ratio 17 (6-20) Glucose Level 181 mg/dL (70-99) H Lactic Acid Level 2.1 mmol/L (0.4-2.0) H Calcium Level 7.6 mg/dL (8.5-10.1) L Total Bilirubin 0.6 mg/dL (0.2-1.0) Aspartate Amino Transferase (AST) 29 U/L (15-37) Alanine Aminotransferase (ALT) 25 U/L (14-59) Alkaline Phosphatase 163 U/L (46-116) H Troponin I High Sensitivity 7 ng/L (4-50) Total Protein 5.1 g/dL (6.4-8.2) L Albumin 1.6 g/dL (3.4-5.0) L Albumin/Globulin Ratio 0.5 (1.0-1.7) L O2 Saturation 96 % (92-99) Arterial Blood pH 7.47 (7.35-7.45) H Arterial Blood pCO2 at Patient Temp 40 mmHg (35-46) Arterial Blood pO2 at Patient Temp 86 mmHg (65-108) Arterial Blood HCO3 29 mmol/L (21-28) H Arterial Blood Base Excess 5 mmol/L (-3-3) H FiO2 1.5 lpm nc Laboratory Tests 06/12/21 11:55 Vital Signs: Vital Signs Date Time Temp Pulse Resp B/P (MAP) Pulse Ox O2 Delivery O2 Flow Rate FiO2 06/12/21 11:40 99.3 102 16 130/60 (83) 100 Nasal Cannula 3.0 99.3 EKG: EKG: [] Radiology/Procedures: Radiology/Procedures: [] Impression: [address] [address] IMAGING REPORT Signed PATIENT: NOEMY BELTRÁN ACCOUNT: [id number] : 1945 LOCATION: ER AGE: 75 SEX: F EXAM STATUS: PRE ER ORD. PHYSICIAN: OLGA OWUSU MD REASON: sepsis, hypoxia PROCEDURE: CHEST AP ONLY AP chest. HISTORY: Sepsis, hypoxia AP view was taken of the chest. There is a shoulder prosthesis on the right. There is blunting of the left costophrenic angle possibly a small effusion. There is mild atelectasis in the right lung base. There is mild atelectasis or infiltrate in the left lung base. Heart is normal in size. IMPRESSION: 1. Blunting left costophrenic angle possible pleural effusion. 2. Mild left base atelectasis or infiltrate. Electronically signed by: Parker Gary MD (06/12/2021 12:39 PM) [facility] DICTATED and SIGNED BY: PARKER GARY MD DATE: 06/12/21 [id number] [facility] [address] [place], [place] [id number] IMAGING REPORT Signed PATIENT: NOEMY BELTRÁN ACCOUNT: [id number] : 1945 LOCATION: ER AGE: 75 SEX: F EXAM STATUS: REG ER ORD. PHYSICIAN: OLGA OWUSU MD REASON: CATHETERIZED URINE SAMPLE APPEARS FECULANT PROCEDURE: CT ABD PELV W/ IV CONTRST ONLY EXAMINATION: CT abdomen and pelvis with IV contrast. INDICATION:75 years, Female, feculent urine. TECHNIQUE: Axial CT images of the abdomen and pelvis were obtained. Coronal and sagittal reformatted performed. COMPARISON: CT chest dated 05/23/2021. Exposure: One or more of the following individualized dose reduction techniques were utilized for this examination: 1. Automated exposure control 2. Adjustment of the mA and/or kV according to patient size 3. Use of iterative reconstruction technique. FINDINGS: LOWER CHEST: Small left and trace right pleural effusions. Subsegmental atelectasis in bibasilar lungs. ABDOMEN/PELVIS: Normal size and morphology of the liver with homogeneous enhancement. Diffuse hepatic steatosis. No suspicious focal hepatic lesion. Cholecystectomy. No biliary ductal dilation. Unremarkable spleen. Severe atrophic pancreas with fat infiltration. No adrenal nodule. No hydronephrosis in either kidney. There is a 1.3 cm calcification in the interpolar left kidney; this calcification seen within the 1.9 cm cystic structure which could represent a nonobstructing calculus within the dilated calyx or within the cortical cyst. No bowel obstruction or wall thickening. Sigmoid diverticulosis without acute diverticulitis. Appendix is not seen with certainty. Moderate amount of stool in the rectosigmoid colon. Moderate aortoiliac atherosclerotic calcifications without narrowing or dilation. Mesenteric arteries and portal vein are patent. No ascites or pneumoperitoneum. No abdominal lymphadenopathy by size criteria. Nonspecific nonenlarged bilateral pelvic lymph nodes. Unremarkable urinary bladder. No discrete fistulous tract between the urinary bladder and adjacent sigmoid colon or rectum. Hysterectomy. No suspicious pelvic masses. No pelvic fat stranding to suggest acute inflammation. MUSCULOSKELETAL STRUCTURES: Diffuse osteopenia. Chronic appearing compression fracture of T12 vertebral body, unchanged. Minimal retrolisthesis of L2 over L3. Severe multilevel degenerative changes in the spine. Posterior hardware fusion at L4-5 with grade 1 anterolisthesis. Fixation hardware in the right femur. Postsurgical changes of ventral herniorrhaphy with mesh. Focal soft tissue thickening with foci of gas and probable skin defect seen in the sacrococcygeal soft tissue, may relate to sequelae of decubitus ulcer. No bone erosion to the adjacent sacroiliac spine to suggest osteomyelitis. IMPRESSION: 1. No discrete fistulous tract between the urinary bladder and adjacent sigmoid colon or rectum. 2. 1.3 cm calcification in the interpolar left kidney; this calcification seen within the 1.9 cm per cystic structure which could represent a nonobstructing calculus within the dilated calyx or within the cortical cyst. 3. Unchanged small left and decreasing trace right pleural effusions. 4. Focal soft tissue thickening with foci of gas and probable skin defect seen in the sacrococcygeal soft tissue, may relate to sequelae of decubitus ulcer. No adjacent bone erosion to suggest osteomyelitis. Clinical correlation is advised. 5. Other chronic/incidental findings, as described above. Electronically signed by: Harish Mijares MD (06/12/2021 4:04 PM) [id number] DICTATED and SIGNED BY: HARISH MIJARES MD DATE: 06/12/21 [id number] Course & Med Decision Making: Course & Med Decision Making Pertinent Labs and Imaging studies reviewed. (See chart for details) Patient is 75-year-old female with history of dementia, CVA, DM, HTN, HLD, CKD, recent hospitalization for bilateral PE who presents with fever, shortness of breath, confusion, and large sacral ulcer. Sacral ulcer does appear infected on examination. Febrile to 103 F, HR low 100s, BP's initially 80/60s. Initially hypoxic into the 80s (reportedly 60s on scene). On 1.5 L/min nasal cannula. Chest x-ray with a left base atelectasis and potential pleural effusion. Sepsis work-up with blood cultures, UA, lactate obtained. Given cefepime and vancomycin for broad coverage. With fever and altered mental status, did consider meningitis, however she does not seem to have any nuchal rigidity. It is unclear how different she is from her baseline at this time. 1333 RN discussed with family, and it does not sound like this is an acute change in her mental status. We will not perform LP at this time. UA still pending. At this time urine and sacral wounds seem to be most likely sources of infection. Covid PCR is negative. Family verify that patient is FULL CODE. [address] was obtained to evaluate for any signs of colovesicular fistula, and was ultimately negative for this. It did, however, revealed a 1.3 centimeter kidney stone in the left kidney that is within a cystic structure that could be a cortical cyst versus a dilated calyx. Concern that this could be a nidus for infection and may require urologic intervention. Will attempt to initiate transfer to a facility with urologic coverage. BP has responded well to 2nd liter of fluids. SBP now >100. 1711 Patient was accepted to [facility]. Accepting physician, Dr. Mecca Gannon. [id number] Dragon Disclaimer: Aidee Disclaimer: This electronic medical record was generated, in whole or in part, using a voice recognition dictation system. Departure Departure Impression: Primary Impression: Sepsis Additional Impressions: Sacral wound Wound infection Respiratory failure with hypoxia Kidney stone Pyelonephritis Disposition: 02 SHORT TERM HOSPITAL Admitting Physician: Madi. Nguyen Condition: GUARDED Referrals: AYAKA POON MD (PCP) OLGA OWUSU MD Jun 12, 2021 13:04
[2021-06-12 13:57] LABS: BASO % 0 % (0-3); EOS % 0 % (0-3); HEMATOCRIT 30.2 % (36.0-47.0); HEMOGLOBIN 9.9 g/dL (12.0-15.5); LYMPH # 0.7 x10^3/uL (1.0-4.8); LYMPH % 5 % (24-48); MEAN CORPUSCULAR HEMOGLOBIN 33 pg (25-35); MEAN CORPUSCULAR HGB CONC 33 g/dL (31-37); MEAN CORPUSCULAR VOLUME 102 fL (79-100); MONO # 0.8 x10^3/uL (0.0-1.1); MONO % 5 % (0-9); NEUT # 13.6 x10^3/uL (1.8-7.7); NEUT % 90 % (31-73); PLATELET COUNT 387 x10^3/uL (140-400); RED BLOOD COUNT 2.98 x10^6/uL (3.50-5.40); RED CELL DISTRIBUTION WIDTH 14.3 % (11.5-14.5); WHITE BLOOD COUNT 15.1 x10^3/uL (4.0-11.0)
[2021-06-12 14:48] LABS: % BANDS 4 % (0-9); % BASOS 1 % (0-3); % LYMPHS 3 % (24-48); % MONOS 6 % (0-10); % SEGS 86 % (35-66)
[2021-06-12 14:50] LABS: PLT ESTIMATE ADEQUATE (ADEQUATE); POLYCHROMASIA SLIGHT; TARGET CELLS FEW
[2021-06-12] MEDS ORDERED: IV RINGERS,LACTATED 500ML 1,000 ML IV ONE (15:00)
[2021-06-12 15:06] LABS: BILIRUBIN,URINE MODERATE (NEG); CLARITY,URINE TURBID; NITRITE,URINE POSITIVE (NEG); PROTEIN,URINE 30 mg/dL (NEG-TRACE); UROBILINOGEN,URINE 0.2 mg/dL (0.2 mg/dL)
[2021-06-12 15:14] LABS: COLOR,URINE BROWN
[2021-06-12 15:15] LABS: HYALINE CASTS, URINE MANY /HPF
[2021-06-12] MEDS ORDERED: IOHEXOL 300 MG/ML 100ML VIAL. IV ONE (15:15)
[2021-06-12 15:16] LABS: AMORPHOUS SEDIMENT,UR PRESENT /HPF; BACTERIA,URINE FEW /HPF (0-FEW); RBC,URINE TNTC /HPF (0-2); WBC,URINE TNTC /HPF (0-4); YEAST,URINE PRESENT /HPF
--- NOTE | 2021-06-12 16:07 | RAD ---
EXAMINATION: CT abdomen and pelvis with IV contrast. INDICATION:75 years, Female, feculent urine. TECHNIQUE: Axial CT images of the abdomen and pelvis were obtained. Coronal and sagittal reformatted performed. COMPARISON: CT chest dated 05/23/2021. Exposure: One or more of the following individualized dose reduction techniques were utilized for thi s examination: 1. Automated exposure control 2. Adjustment of the mA and/or kV according to patient size 3. Use of iterative reconstruction technique. FINDINGS: LOWER CHEST: Small left and trace right pleural effusions. Subsegmental atelectasis in bibasilar lungs. ABDOMEN/PELVIS: Normal size and morphology of the liver with homogeneous enhancement. Diffuse hepatic steatosis. No s uspicious focal hepatic lesion. Cholecystectomy. No biliary ductal dilation. Unremarkable spleen. Sev ere atrophic pancreas with fat infiltration. No adrenal nodule. No hydronephrosis in either kidney. T here is a 1.3 cm calcification in the interpolar left kidney; this calcification seen within the 1.9 cm cystic structure which could represent a nonobstructing calculus within the dilated calyx or withi n the cortical cyst. No bowel obstruction or wall thickening. Sigmoid diverticulosis without acute diverticulitis. Appendi x is not seen with certainty. Moderate amount of stool in the rectosigmoid colon. Moderate aortoiliac atherosclerotic calcifications without narrowing or dilation. Mesenteric arteries and portal vein ar e patent. No ascites or pneumoperitoneum. No abdominal lymphadenopathy by size criteria. Nonspecific nonenlarged bilateral pelvic lymph nodes. Unremarkable urinary bladder. No discrete fistulous tract between the urinary bladder and adjacent si gmoid colon or rectum. Hysterectomy. No suspicious pelvic masses. No pelvic fat stranding to suggest acute inflammation. MUSCULOSKELETAL STRUCTURES: Diffuse osteopenia. Chronic appearing compression fracture of T12 vertebral body, unchanged. Minimal retrolisthesis of L2 over L3. Severe multilevel degenerative changes in the spine. Posterior hardware fusion at L4-5 with grade 1 anterolisthesis. Fixation hardware in the right femur. Postsurgical rose ges of ventral herniorrhaphy with mesh. Focal soft tissue thickening with foci of gas and probable skin defect seen in the sacrococcygeal sof t tissue, may relate to sequelae of decubitus ulcer. No bone erosion to the adjacent sacroiliac spine to suggest osteomyelitis. IMPRESSION: 1. No discrete fistulous tract between the urinary bladder and adjacent sigmoid colon or rectum. 2. 1.3 cm calcification in the interpolar left kidney; this calcification seen within the 1.9 cm per cystic structure which could represent a nonobstructing calculus within the dilated calyx or within the cortical cyst. 3. Unchanged small left and decreasing trace right pleural effusions. 4. Focal soft tissue thickening with foci of gas and probable skin defect seen in the sacrococcygeal soft tissue, may relate to sequelae of decubitus ulcer. No adjacent bone erosion to suggest osteomye litis. Clinical correlation is advised. 5. Other chronic/incidental findings, as described above. Electronically signed by: Sommer Mijares MD (06/12/2021 4:04 PM) [id number]
[2021-06-12 20:31] VITALS: BP 111/51
--- NOTE | 2021-06-12 23:55 | EKG ---
[facility] [address] [place] [address] Test Date: 2021-06-12 Test Time: 11:51:01 Pat Name: NOEMY BELTRÁN Department: Room: [facility]: : 1945 Requested By: OLGA OWUSU Order Number: [id number] Reading MD: Mynor Garay Measurements Intervals [place] Rate: 104 P: 0 NC: 132 QRS: 62 QRSD: 80 T: 78 QT: 374 QTc: 499 Interpretive Statements SINUS TACHYCARDIA LOW LIMB LEAD VOLTAGE Electronically Signed On 06-13-2021 7:14:48 NARROW GAUGE ENGINEER by Mynor Garay
[2021-06-13] MEDS ORDERED: VANCOMYCIN 1.25 GM in IV NORMAL SALINE 250ML 250 ML IV SCH (14:00)
== END 2021-06-12 20:44 | disposition short-term general hospital (02) ==
LOC: ER 11:40
DX: J96.91 Respiratory failure, unspecified with hypoxia (principal); Z20.822 Contact with and (suspected) exposure to COVID-19; A41.9 Sepsis, unspecified organism; N12 Tubulo-interstitial nephritis, not specified as acute or chronic; N20.0 Calculus of kidney; E11.22 Type 2 diabetes mellitus with diabetic chronic kidney disease; I12.9 Hypertensive chronic kidney disease with stage 1 through stage 4 chronic kidney disease, or unspecified chronic kidney disease; N18.9 Chronic kidney disease, unspecified; K21.9 Gastro-esophageal reflux disease without esophagitis; F03.90 Unspecified dementia, unspecified severity, without behavioral disturbance, psychotic disturbance, mood disturbance, and anxiety; E78.00 Pure hypercholesterolemia, unspecified; Z86.73 Personal history of transient ischemic attack (TIA), and cerebral infarction without residual deficits; Z88.0 Allergy status to penicillin; Z88.2 Allergy status to sulfonamides; Z88.5 Allergy status to narcotic agent
CPT/HCPCS: 36415; 36600; 71045; 74177; 80053; 81001; 82805; 83605; 84145; 84484; 85007; 85025; 87086; 87426; 93005; 96361; 96365; 96366; 96375; 99285; J0692; J3370; J7030; J7040; J7120; P9612; Q9967; U0003; U0005